=== PATIENT | male | born 1990 | race Caucasian/White ===

== ENCOUNTER 2018-02-05 18:46 | Emergency (ER) | payer OTHER ==
[~2018-02-05 18:46] MED LIST: BUPR1FIL7 SL; LEVE750T74 PO; OXCA150T47 PO
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
[2018-02-05] MEDS ORDERED: CLON-303 PO (18:53)
[2018-02-05] MEDS ORDERED: ZOLP-350 PO (18:53)
[2018-02-05] MEDS ORDERED: DIA5 PO (19:30)
[2018-02-05] MEDS ORDERED: BUPR8TAB7 SL (19:30)
[2018-02-05] MEDS ORDERED: DIAZEPAM 5 MG TAB TH 2 TAB/BOTTLE PO ONE (19:35)
[2018-02-05 19:49] VITALS: BP 128/86
== END 2018-02-05 19:47 | disposition home or self-care (01) ==
LOC: ER 18:50
DX: T85.848A Pain due to other internal prosthetic devices, implants and grafts, initial encounter (principal); M27.69 Other endosseous dental implant failure; F17.210 Nicotine dependence, cigarettes, uncomplicated; R56.9 Unspecified convulsions
CPT/HCPCS: 99283

== ENCOUNTER 2018-06-30 22:33 | Emergency (ER) | payer OTHER ==
[~2018-06-30 22:33] MED LIST changes: +BUPR8TAB7 SL; +CLON-333 PO; +DIA5 PO; +ZOLP-350 PO
[2018-06-30 22:35] VITALS: BP 140/94
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
[2018-06-30] MEDS ORDERED: [UNRECOGNIZED DRUG - CODE] PO (22:52)
[2018-06-30] MEDS ORDERED: ALPRAZolam 1 MG TAB PO ONE (22:55)
== END 2018-06-30 22:55 | disposition home or self-care (01) ==
LOC: ER 22:48
DX: G40.909 Epilepsy, unspecified, not intractable, without status epilepticus (principal)
CPT/HCPCS: 99283